=== PATIENT | female | born 1995 | race Two or more races ===

== ENCOUNTER 2023-08-06 11:38 | Emergency (ER) | payer OTHER ==
[~2023-08-06] VITALS: Ht 157.5 cm; Wt 99.8 kg
[2023-08-06] MEDS ORDERED: FLUCONAZOLE150 MG PO (14:16)
== END 2023-08-06 14:55 | disposition home or self-care (01) ==
LOC: ER 11:38
PROVIDERS: General Practice
DX: R06.02 Shortness of breath (principal)